=== PATIENT | male | born 1945 | race American Indian/Alaskan Native ===

== ENCOUNTER 2020-04-27 06:09 | Day surgery (SDC) | payer MEDICARE ==
[2020-04-25 10:18] LABS: Hematocrit 43.4 % (35.5-45.6); Hemoglobin 14.4 gm/dl (11.8-15.2); Mean Corpuscular HGB Conc 33 % (32-34); Mean Corpuscular Volume 84 fl (84-94); Platelet Count 175 K/mm3 (140-440); Red Blood Count 5.17 M/mm3 (3.65-5.03); Red Cell Distribution Width 14.2 % (13.2-15.2)
[2020-04-25 10:35] LABS: Calcium 9.2 mg/dL (8.4-10.2)
[2020-04-27] MEDS ORDERED: BACTERIOSTATIC SODIUM CHLORIDE 0.9% 30 ML VIAL INFILTRATI ONE (06:14)
--- NOTE | 2020-04-27 06:54 | Anesthesia Day of Surgery ---
Anesthesia Day of Surgery - Day of Surgery Patient Examined: Yes Patient H&P Reviewed: Yes Patient is NPO: Yes
--- NOTE | 2020-04-27 06:54 | Anesthesia Consultation ---
Anesthesia Consult and Med Hx Date of service: 04/27/20 - Airway Anesthetic Teeth Evaluation: Good ROM Head & Neck: Adequate Mental/Hyoid Distance: Adequate Mallampati Class: Class II Intubation Access Assessment: Good - Pulmonary Exam CTA: Yes - Cardiac Exam Cardiac Exam: RRR - Pre-Operative Health Status ASA Pre-Surgery Classification: ASA2 Proposed Anesthetic Plan: General - Pulmonary Hx Smoking: Yes (STOPPED 2007) Hx Asthma: No COPD: No Hx Sleep Apnea: No (CASSANDRA PRE SCREEN HIGH RISK) - Cardiovascular System Hx Hypertension: Yes Hx Heart Attack/AMI: No Hx Pacemaker: No Hx Internal Defibrillator: No - Central Nervous System Hx Seizures: No Hx Back Pain: No Hx Psychiatric Problems: No - Endocrine Hx End Stage Renal Disease: No Hx Cirrhosis: No Hx Liver Disease: No - Hematic Hx Anemia: No Hx Sickle Cell Disease: No - Other Systems Hx Alcohol Use: Yes (OCC. BEER) Hx Substance Use: No Hx Cancer: No (PATIENT SAID NONE)
[2020-04-27] MEDS ORDERED: DEXTROSE 50% IN WATER (25GM) 50 ML SYRINGE IV ONE (06:55)
[2020-04-27] MEDS: DEXTROSE 50% IN WATER (25GM) 50 ML SYRINGE IV SCH ×2 (06:59→07:25)
[2020-04-27] MEDS ORDERED: MIDAZOLAM 2 MG/2 ML INJ IV NR (07:00)
[2020-04-27] MEDS ORDERED: LACTATED RINGERS 1,000 ML IV SCH (07:00)
[2020-04-27] MEDS ORDERED: GENTAMICIN 80 MG in SODIUM CHLORIDE 0.9% 100 ML IV SCH (07:15)
[2020-04-27] MEDS ORDERED: LIDOCAINE MPF (2%) 20 MG/1 ML VIAL 5 ML ONE (07:17)
[2020-04-27] MEDS ORDERED: ONDANSETRON 4 MG/2 ML INJ ONE (07:17)
[2020-04-27] MEDS ORDERED: fentaNYL 100 MCG/2 ML INJ ONE (07:18)
[2020-04-27] MEDS ORDERED: propofoL 200 MG/20 ML VIAL IV ONE (07:18)
[2020-04-27] MEDS ORDERED: ceFAZolin/STERILE WATER 2 GM/20 ML SYRINGE IV NR (08:00)
[2020-04-27] MEDS ORDERED: ePHEDrine SULFATE 50 MG/1 ML INJ ONE (08:00)
[2020-04-27] MEDS ORDERED: GENTAMICIN/NS 80 MG/100 ML 100 ML IV SCH (08:00)
[2020-04-27] MEDS ORDERED: SODIUM CHLORIDE P/F VIAL 10 ML 10 ML ONE (08:01)
[2020-04-27] MEDS ORDERED: PHENYLEPHRINE/NS 1,000 MCG/10 ML SYRINGE (OR USE) IV ONE (08:34)
--- NOTE | 2020-04-27 08:50 | Short Stay Summary ---
Short Stay Documentation Date of service: 04/27/20 - History H&P: obtained from office - Allergies and Medications Current Medications: Allergies No Known Allergies Allergy (Verified 04/22/20 17:53) Home Medications Medication Instructions Recorded Confirmed Last Taken Type Gabapentin 300 mg PO DAILY 04/22/20 04/22/20 Unknown History Lisinopril 20 mg PO DAILY 04/22/20 04/22/20 Unknown History NovoLOG Flexpen 30 units SQ DAILY 04/22/20 04/22/20 Unknown History Madison-3/Dha/Epa/Fish Oil [Madison 3 1 cap PO DAILY 04/22/20 04/22/20 Unknown History 500 Softgel] Tamsulosin [Flomax] 0.4 mg PO QDAY 04/22/20 04/22/20 Unknown History metFORMIN [Glucophage] 500 mg PO DAILY 04/22/20 04/22/20 Unknown History Active Medications Cefazolin Sodium (Cefazolin/Sterile Water 2 Gm/20 Ml Syringe) 2 gm IV PREOP NR Stop: 04/27/20 18:00 Dextrose (Dextrose 50% In Water (25gm) 50 Ml Syringe) 12.5 ml IV ONCE MARIMAR; Protocol Stop: 04/27/20 18:00 Last Admin: 04/27/20 07:25 Dose: 12.5 ml Documented by: Lactated Ringer's (Lactated Ringers) 1,000 mls @ 100 mls/hr IV DIRECT MARIMAR Gentamicin Sulfate/Sodium Chloride (Gentamicin/Ns 80 Mg/100 Ml) 100 mls @ 200 mls/hr IV PREOP MARIMAR Stop: 04/27/20 18:00 Midazolam HCl (Midazolam 2 Mg/2 Ml Inj) 2 mg IV PREOP NR Stop: 04/27/20 23:59 - Brief post op/procedure progress note Date of procedure: 04/27/20 Pre-op diagnosis: BPH, ELEVATED PSA Post-op diagnosis: other (URETHRAL STRICTURE) Procedure: CYSTO, DVIU, PUS 65CC, SATURATION BX PROSTATE Anesthesia: GETA Surgeon: AUSTEN BELLE Estimated blood loss: minimal Pathology: list (BX PROSTATE) Specimen disposition: to lab Condition: stable - Hospital course Hospital course: BACTRIM & ULTRAM ON CHART - Disposition Condition at discharge: Stable Short Stay Discharge Plan Follow up with: SEAN MUNGUIA MD [Primary Care Provider] - 7 Days
--- NOTE | 2020-04-27 08:56 | Ultrasound Report ---
Limited transrectal prostate Ultrasound HISTORY: ELEVATED PSA. TECHNIQUE: Grayscale and color imaging performed. COMPARISON: None IMPRESSION: Intraoperative ultrasound guidance was provided. The prostate is slightly heterogeneous i n appearance with volume of 64 mL. Biopsy was performed. Please refer to the operative note for compl ete details. Signer Name: Davis Quispe MD Signed: 04/27/2020 8:52 AM Workstation Name: [id number]
--- NOTE | 2020-04-27 09:04 | Operative Report ---
PREOPERATIVE DIAGNOSES: Elevated PSA 14, prostate lesion, benign prostate hypertrophy. POSTOPERATIVE DIAGNOSES: Elevated PSA 14, prostate lesion, benign prostate hypertrophy, urethral stricture. PROCEDURE: Cystoscopy, direct vision internal urethrotomy, bilateral retrograde pyelograms, transrectal ultrasound (65 mL), saturation biopsy of prostate. SURGEON: Dr. Mainor Louise ANESTHESIA: General. ESTIMATED BLOOD LOSS: Minimal. FLUIDS: Crystalloid. COMPLICATIONS: No complications. INDICATIONS: This patient is a 74-year-old gentleman with a history of benign prostatic hypertrophy, on Flomax with a rising PSA. Previous biopsy was negative. MRI suggested small lesion. He presents now for surgical intervention. Risks, benefits, and complications were explained. DESCRIPTION OF PROCEDURE: The patient was taken to the operative suite, placed in a supine position. After adequate general anesthesia, he was placed in a dorsal lithotomy position, prepped and draped in a sterile fashion. Pancystourethroscopy was performed with a 22-Ch[place]an Storz cystoscope. He was noted to have a bulbar stricture. A 0.035 Glidewire was placed without difficulty. The Pendleton knife was used to make an incision at the 12 o'clock position, was able to advance the prostate. We advanced the scope into the prostate. He did have some moderate trilobar obstruction including a moderate sized median lobe. Bladder, no tumors or stones were noted. Both ureteral orifices in normal position with diffuse trabeculation. Bilateral retrograde pyelograms were obtained with an 8-Chilean Rohith catheter and 8 mL of contrast. No filling defects or obstruction. He did have some distal J hooking of the ureters. Next, using a transrectal ultrasound, sagittal and transverse measurements were taken, 65 mL prostate. No significant lesions were noted; however, saturation biopsy of 24 cores were taken at the base, mid, and apex of the prostate. A 20-Chilean kotlik tip catheter was advanced over the wire pink-tinged urine. Rectal exam was benign. The patient tolerated the procedure well and was extubated and taken to recovery room. He will go home on Bactrim and Ultram. JOB# [id number] [facility]
--- NOTE | 2020-04-27 09:09 | Fluoroscopy Report ---
9 fluoroscopic images submitted Indication: Intraoperative localization Impression: 9 images of the abdomen were submitted for documentation purposes with radiology involve melody. Bilateral retrograde pyelograms were performed at approximately 12 mL of Omnipaque 300 was uti lized for this exam. Please refer to the operative note for complete details. Fluoroscopic time: 0.1 minutes Signer Name: Davis Quispe MD Signed: 04/27/2020 9:04 AM Workstation Name: [id number]
[2020-04-27 09:43] VITALS: BP 134/65
[2020-04-27] MEDS ORDERED: IOHEXOL 300 MG/ML 50ML IV ONE (11:21)
[2020-04-27] MEDS ORDERED: WATER FOR IRRIG STERILE 1,500 ML BOTTLE IR ONE (11:22)
--- NOTE | 2020-04-27 14:00 | Post Anesthesia Evaluation ---
- Post Anesthesia Evaluation Patient Participated: Yes Airway Patent: Yes Stable Respiratory Function: Yes Nausea/Vomiting: No Temp > 96.8F: Yes Pain Manageable: Yes Adequeate Hydration: Yes Anesthesia Complications: No Block Receding Appropriately: Not Applicable Patient on Ventilator: No
== END 2020-04-27 10:50 | disposition home or self-care (01) ==
LOC: OR 06:09
PROVIDERS: ATTEND Urology
DX: R97.20 Elevated prostate specific antigen [PSA] (principal); N40.0 Benign prostatic hyperplasia without lower urinary tract symptoms; N41.8 Other inflammatory diseases of prostate; K21.9 Gastro-esophageal reflux disease without esophagitis; Z85.46 Personal history of malignant neoplasm of prostate; Z79.84 Long term (current) use of oral hypoglycemic drugs; Z79.899 Other long term (current) drug therapy; Z87.891 Personal history of nicotine dependence; Z86.19 Personal history of other infectious and parasitic diseases; Z72.89 Other problems related to lifestyle; Z98.890 Other specified postprocedural states
CPT/HCPCS: 36415; 52005; 55706; 74420; 76872; 80048; 82962; 85027; 88305; J0690; J1580; J2370; J2405; J2704; J3010; J7120; Q9967; U0003; C1758; C1769